=== PATIENT | female | born 1980 | race Two or more races ===

== ENCOUNTER 2024-03-11 09:41 | Emergency (ER) | payer BC, MEDICAID ==
[~2024-03-11] VITALS: Ht 167.6 cm; Wt 71.6 kg
[2024-03-11 10:44] VITALS: BP 147/103; PULSE 93; RESP 18; TEMP 97.9; O2SAT 100
--- NOTE | 2024-03-11 11:06 | DVH ---
CLINICAL INDICATION: PAIN, NO INJURY TECHNIQUE: XY R WRIST 3+ VIEW XRAY Comparison: None FINDINGS/IMPRESSION: There is no evidence of acute fracture or dislocation. The visualized joint space is well maintained. The alignment is anatomical. There is no radiopaque foreign body.
--- NOTE | 2024-03-11 11:54 | ED.PDOC ---
Musculoskeletal HPI Comments A 43-YEAR-OLD FEMALE PRESENTS WITH A CHIEF COMPLAINT OF RIGHT WRIST PAIN X 3 DAYS. PATIENT STATES THAT SHE SPONTANEOUSLY GOT RIGHT WRIST PAIN S/P CUTTING VEGETABLES AT WORK DAILY. PATIENT IS ABLE TO MOVE HER WRIST, BUT STATES THAT IT IS PAINFUL TO DO SO. PATIENT REPORTS THAT SHE HAD NO ACCIDENT TO INJURE HER WRIST. RIGHT WRIST PAIN RADIATES TO RIGHT HAND WITH FINGERS NUMBNESS NUMBNESS AND TINGLING SENSATION. NO OTHER SYMPTOMS OR MODIFYING FACTORS PRESENT AT THIS TIME. Chief Complaint: Upper Extremity Time Seen by MD: 11:33 Reviewed Notes: Nurses Notes, Medications, Allergies Allergies: Coded Allergies: NO KNOWN ALLERGIES (Verified , 12/15/10) Information Source: Patient Mode of Arrival: Ambulatory Location: Right Extremity Location: Hand, Wrist Timing: Days Prehospital treatment: None Severity: Moderate Able to Move Extremity: Yes Bear Weight: Fully Pain: Moderate Hand Dominance: Right Mechanism: No Injury Circumstances: Work Related Onset of Symptoms: Spontaneous Symptoms: Pain DVT Risk Factors: NONE Last Tetanus: Unknown Associated signs and symptoms: Wrist pain, Hand pain Past Medical History PAST MEDICAL HISTORY: Denies Surgical History: Denies all surgeries MOBILE SECURITY SPECIALIST History: No Pertinent MOBILE SECURITY SPECIALIST History Family History Family History: Reviewed,noncontributory to illness Social History Smoker: Non-Smoker Alcohol: Denies ETOH Use Drugs: Denies Drug Use Lives In: Home Constitutional: denies: chills, diaphoresis, fatigue, fever, malaise, sweats, weakness, others EENTM: denies: blurred vision, double vision, ear bleeding, ear discharge, ear drainage, ear pain, ear ringing, eye pain, eye redness, hearing loss, mouth pain, mouth swelling, nasal discharge, nose bleeding, nose congestion, nose pain, photophobia, tearing, throat pain, throat swelling, voice changes, others Respiratory: denies: cough, hemoptysis, orthopnea, SOB at rest, shortness of breath, SOB with excertion, stridor, wheezing, others Cardiovascular: denies: chest pain, dizzy spells, diaphoresis, Dyspnea on exertion, edema, irregular heart beat, left arm pain, lightheadedness, palpitations, PND, syncope, others Gastrointestinal: denies: abdomen distended, abdominal pain, blood streaked bowels, constipated, diarrhea, dysphagia, difficulty swallowing, hematemesis, melena, nausea, poor appetite, poor fluid intake, rectal bleeding, rectal pain, vomiting, others Genitourinary: denies: abnormal vagina bleeding, burning, dyspareunia, dysuria, flank pain, frequency, hematuria, incontinence, pain, , vagina discharge, urgency, others Neurological: reports: tingling; denies: dizziness, fainting, headache, left sided numbness, left sided weakness, numbness, paresthesia, pre-existing deficit, right sided numbness, right sided weakness, seizure, speech problems, tremors, weakness, others Musculoskeletal: reports: muscle pain; denies: back pain, gout, joint pain, joint swelling, muscle stiffness, neck pain, others Integumetry: denies: bruises, change in color, change in hair/nails, dryness, laceration, lesions, lumps, rash, wounds, others Allergic/Immunocompromised: denies: Difficulty Healing, Frequent Infections, Hives, Itching, others Hematologic/Lymphatic: denies: anemia, blood clots, easy bleeding, easy bruising, swollen glands, others Endocrine: denies: excessive hunger, excessive sweating, excessive thirst, excessive urination, flushing, intolerance to cold, intolerance to heat, unexplained weight gain, unexplained weight loss, others Psychiatric: denies: anxiety, bipolar disorder, depression, hopeless, panic disorder, schizophrenia, sleepless, suicidal, others All Other Systems: Reviewed and Negative Physical Exam General Appearance: No Apparent Distress, Normal HEENT: Normal ENT Inspection, PERRL/EOMI, Pharynx Normal, TMs Normal Neck: Full Range of Motion, Non-Tender, Normal, Normal Inspection Respiratory: Chest Non-Tender, Lungs Clear, No Accessory Muscle Use, No Respiratory Distress, Normal Breath Sounds Cardiovascular: No Edema, No JVD, No Murmur, No Gallop, Normal Peripheral Pul ses, Regular Rate/Rhythm Breast Exam: Deferred Gastrointestinal: No Organomegaly, Non Tender, No Pulsatile Mass, Normal Bowel Sounds, Soft Genitalia: Deferred Pelvic: Deferred Rectal: Deferred Extremities: No calf tenderness, Normal capillary refill, Normal range of motion, No pedal edema, Tender (RIGHT WRIST AND HAND, NO BONY TENDERNESS, SWELLING AND DEFORMITY. +TINEL'S AND PHALEN'S SIGNS. ) Musculoskeletal : Apperance: Normal Neurologic: Alert, band lining bander II-XII nml as Tested, No Motor Deficits, Normal Affect, Normal Mood, No Sensory Deficits Cerebellar Function: Normal Reflexes: Normal Skin: Dry, Normal Color, Warm Peripheral Pulses: 2+ carotid (R), 2+ carotid (L), 2+ Radial (R), 2+ Radial (L) Lymphatic: No Adenopathy Was a procedure done? Was a procedure done?: No Differential Diagnosis EXT Differential Diagnosis: Sprain, Arthritis, Bursitis, Other (CTS) X-Ray, Labs, Meds, VS Vital Signs Date Time Temp Pulse Resp B/P (MAP) Pulse Ox O2 Delivery O2 Flow Rate FiO2 03/11/24 10:44 93 18 100 Room Air 03/11/24 10:44 97.9 93 18 147/103 (118) 100 97.9 03/11/24 10:07 97.9 93 18 147/103 (118) 100 PATIENT: HELGA YEHACCT: [id number]: [id number] : 1980 LOC: ER ROOM / BED: / AGE / SEX: 43 / F ADM STATUS: REG ER SERVICE [id number] ORDERING PHYSICIAN: MOUNA MATTHEWS PROCEDURE(s): RWRI - R WRIST 3+ VIEW XRAY REASON: PAIN, NO INJURY ORDER NUMBER(s): [id number], ACCESSION NUMBER(s): [id number] CLINICAL INDICATION: PAIN, NO INJURY TECHNIQUE: XY R WRIST 3+ VIEW XRAY Comparison: None FINDINGS/IMPRESSION: There is no evidence of acute fracture or dislocation. The visualized joint space is well maintained. The alignment is anatomical. There is no radiopaque foreign body. ATED BY: ALEXEI PATEL MD DICTATED DATE/TIME: 03/11/241102 SIGNED BY: ALEXEI PATEL MD SIGNED DATE/TIME: 03/11/241102 CC: X-Ray, Labs, Meds, VS Comment BLACK BRACE OF RIGHT WRIST Time of 1ST Reevaluation: 12:03 Reevaluation 1ST: Improved Patient Education/Counseling: Diagnosis, Treatment, Prognosis, Need For Follow Up Family Education/Counseling: Diagnosis, Treatment, No Family Present Medical Screening: No EMC Exist At This Time Departure 1 Departure Time of Disposition: 12:24 Impression: Primary Impression: Carpal tunnel syndrome of right wrist Disposition: HOME / SELF CARE / HOMELESS Condition: Stable Additional Instructions: Discharge Note: Drink plenty of fluids. Follow up with your primary Dr. . If your condition becomes worse call and follow up with your primary Dr. for instructions or return to the ER if needed. Thank you for visiting [facility]. e-Prescriptions Ibuprofen (Ibuprofen) 800 Mg Tab 1 TAB PO TID, #30 TAB Prov: MOUNA MATTHEWS 03/11/24 Discharged With: Self Critical Care Note Critical Care Time?: No Stability Stability form required: No Heart Score Heart Score: Heart Score Response (Comments) Value History N/A 0 EKG N/A 0 Age N/A 0 Risk Factors N/A 0 Troponin N/A 0 Total 0 I personally scribed for MOUNA MATTHEWS ([email or web address]) on 03/11/24 at 11:54. Electronically submitted by Brock Murray ([email or web address]). MOUNA MATTHEWS Mar 11, 2024 11:54
[2024-03-11] MEDS ORDERED: IBUP-1456 PO (12:27)
== END 2024-03-11 12:35 | disposition home or self-care (01) ==
LOC: ER 09:41
DX: G56.01 Carpal tunnel syndrome, right upper limb (principal)
CPT/HCPCS: 29125; 73110